=== PATIENT | female | born 1945 | race Caucasian/White ===

== ENCOUNTER 2018-01-04 10:46 | Emergency (ER) | payer MEDICARE ==
[~2018-01-04] VITALS: Ht 170.2 cm; Wt 81.7 kg
[~2018-01-04 10:46] MED LIST: Amaryl4 MG PO; HYDCHL50 PO; LISI20 PO; MARIJUANA PO; METF500 PO; PRIM50 PO; RAMI2.5 PO; SERT100 PO; Zocor20 MG PO
[2018-01-04] MEDS ORDERED: LISI20 PO (11:53)
[2018-01-04] MEDS ORDERED: GLIM4 PO (11:53)
[2018-01-04] MEDS ORDERED: RAMI5 PO (11:53)
[2018-01-04] MEDS ORDERED: PRIM50 PO (11:53)
[2018-01-04] MEDS ORDERED: Metformin HCl750 MG PO (11:53)
[2018-01-04] MEDS ORDERED: Zocor20 MG PO (11:53)
== END 2018-01-04 12:08 | disposition home or self-care (01) ==
LOC: ER 10:46
DX: Z76.0 Encounter for issue of repeat prescription (principal); I10 Essential (primary) hypertension; Z88.5 Allergy status to narcotic agent; Z79.899 Other long term (current) drug therapy
CPT/HCPCS: 99281

== ENCOUNTER → 2018-07-15 | Outpatient (CLI) | payer MEDICARE ==
[~2018-07-15] MED LIST changes: +GLIM4 PO; +Metformin HCl750 MG PO; +RAMI5 PO
[2018-07-15 13:17] LABS: Microalb/Creat Ratio UR, Rand 10.875 mg/g (0.000-30.000); Microalbumin, Random Urine 7.83 mg/L (0.000-20.000)
== END ==
LOC: LAB 09:00 → LAB SHORT 09:00 → LAB FUT 07-12 15:15
PROVIDERS: Nurse Practitioner Family
DX: E11.9 Type 2 diabetes mellitus without complications (principal)
CPT/HCPCS: 82043; 82570